=== PATIENT | male | born 1945 | race Two or more races ===

== ENCOUNTER 2022-08-01 18:11 | Emergency (ER) | payer MEDICARE, OTHER ==
[~2022-08-01] VITALS: Ht 170.2 cm; Wt 68.0 kg
[2022-08-01 18:44] LABS: BASOPHILS % 0.3 % (0.0-1.0); EOSINOPHILS # (AUTO) 0.1 (0.0-0.4); EOSINOPHILS % 0.9 % (0.0-6.0); HEMATOCRIT 43.6 % (38.2-49.6); LYMPHOCYTES # (AUTO) 2.6 (1.0-3.2); LYMPHOCYTES % 30.5 % (18.0-39.1); MEAN CORPUSCULAR HEMOGLOBIN 29.9 pg (28-32); MEAN CORPUSCULAR HGB CONC 32.1 g/dL (31-35); MEAN CORPUSCULAR VOLUME 93.2 fL (81-99); MONOCYTES # (AUTO) 0.8 (0.2-0.8); MONOCYTES % 9.3 % (4.4-11.3); NEUTROPHILS % 58.7 % (38.7-80.0); PLATELET COUNT 182 x10e3/uL (140-360); RED BLOOD COUNT 4.68 x10e6/uL (4.3-5.7); RED CELL DISTRIBUTION WIDTH 14.5 % (11.7-14.4)
[2022-08-01 19:04] LABS: ALBUMIN 3.7 g/dL (3.5-5.0); ALBUMIN/GLOBULIN RATIO 0.9 (0.8-2.0); ANION GAP 18.4 mmol/L (8-16); CALCIUM 9.7 mg/dL (8.4-10.2); POTASSIUM 4.4 mmol/L (3.5-5.1)
[2022-08-01 19:23] LABS: CLARITY,URINE CLEAR (CLEAR); COLOR,URINE YELLOW (YELLOW); KETONES,URINE TRACE (NEGATIVE); LEUKOCYTE ESTERASE ,URINE NEGATIVE (NEGATIVE); NITRITE,URINE NEGATIVE (NEGATIVE); PROTEIN,URINE DIPSTICK NEGATIVE (NEGATIVE)
[2022-08-01 19:24] LABS: URINE UROBILINOGEN 0.2 mg/dL (0.2 - 1)
[2022-08-01 19:35] LABS: BACTERIA,URINE MODERATE /HPF; MUCUS,URINE MANY (RARE)
[2022-08-01 19:36] LABS: EPITHELIAL CELLS,URINE RARE /LPF; RBC,URINE 0-5 /HPF (0-5)
[2022-08-01] MEDS ORDERED: CEPHALEXIN500 MG PO (20:13)
[2022-08-01 20:46] VITALS: BP 119/74
== END 2022-08-01 20:32 | disposition home or self-care (01) ==
LOC: ER 18:21
DX: R50.9 Fever, unspecified (principal); N39.0 Urinary tract infection, site not specified; E11.9 Type 2 diabetes mellitus without complications; E78.5 Hyperlipidemia, unspecified
CPT/HCPCS: 36415; 80053; 81001; 85025; 99283